=== PATIENT | male | born 1945 | race Caucasian/White ===

== ENCOUNTER 2019-01-25 08:00 | Day surgery (SDC) | payer MEDICARE, BC ==
[~2019-01-25 08:00] MED LIST: ACETAMINOPHEN 500 MG TABLET PO ONE; CEFAZOLIN 2 Gram 2 GM/50 ML BAG IVPB ONE; CELECOXIB 100 MG CAPSULE PO ONE; FAMOTIDINE 20MG TABLET PO ONE; METOCLOPRAMIDE 10 MG TABLET PO ONE; SCOPOLAMINE 1 PATCH TDSY TD ONE; VANCOMYCIN 1GM/200ML PREMIX 1 GM/200 ML PIGGYBACK IVPB ONE
[2019-01-25] MEDS ORDERED: ROPIVACAINE HCL (NAROPIN) /PF 5MG/ML 20ML VIAL IV ONE (08:01)
[2019-01-25] MEDS ORDERED: LIDOCAINE 2% MDV (20MG/ML) 20ML VIAL IV ONE (08:01)
[2019-01-25] MEDS ORDERED: DEXAMETHASONE 4 MG/ML 1ML VIAL IVP ONE (08:01)
[2019-01-25] MEDS ORDERED: MIDAZOLAM HCL 2MG/2ML VIAL IV ONE (08:01)
[2019-01-25] MEDS ORDERED: PROPOFOL 10 MG/ML VIAL IV ONE (08:01)
[2019-01-25 09:00] LABS: ABO GROUP B; ANTIBODY SCREEN NEGATIVE (NEGATIVE); RH TYPE POSITIVE
[2019-01-25] MEDS ORDERED: RINGERS SOLUTION,LACTATED 1,000 ML IV ONE ×2 (09:10→10:57)
[2019-01-25] MEDS ORDERED: VANCOMYCIN HCL 1 GM VIAL IU ONE (11:22)
[2019-01-25] MEDS ORDERED: TRANEXAMIC ACID 1,000 MG/10 ML ML IU ONE (11:22)
[2019-01-25] MEDS ORDERED: BUPIVACAINE LIPOSOME 266MG/20ML VIAL SQ ONE (11:22)
[2019-01-25] MEDS ORDERED: VANCOMYCIN HCL 1 GM VIAL IR ONE (11:22)
[2019-01-25] MEDS ORDERED: BUPIVACAINE 0.5% W/EPI MPF 30 ML VIAL IU ONE (11:22)
[2019-01-25] MEDS ORDERED: TRANEXAMIC ACID 1,000 MG/10 ML ML IVPB ONE (11:23)
[2019-01-25] MEDS ORDERED: ZOLPIDEM TARTRATE 5 MG TABLET PO PRN (13:11)
[2019-01-25] MEDS ORDERED: HYDROCODONE/APAP 5/325MG TABLET PO PRN (13:11)
[2019-01-25] MEDS ORDERED: BISACODYL 10 MG SUPP RC PRN (13:11)
[2019-01-25] MEDS ORDERED: ACETAMINOPHEN W/ CODEINE 300MG/30MG TABLET PO PRN ×2 (13:11)
[2019-01-25] MEDS ORDERED: HYDROMORPHONE HCL 2 MG/ML VIAL IM PRN ×2 (13:11)
[2019-01-25] MEDS ORDERED: ONDANSETRON HCL IV 4 MG/2 ML VIAL IVP PRN (13:11)
[2019-01-25] MEDS ORDERED: METOCLOPRAMIDE HCL 10 MG/2 ML VIAL IVP PRN (13:11)
[2019-01-25] MEDS ORDERED: PROMETHAZINE HCL 12.5 MG in 0.9 % SODIUM CHLORIDE 100ML 50 ML IVPB PRN (13:11)
[2019-01-25] MEDS ORDERED: DIPHENHYDRAMINE HCL 25 MG CAPSULE PO PRN (13:11)
[2019-01-25] MEDS ORDERED: NALOXONE 0.4 MG/1 ML VIAL IVP PRN (13:11)
[2019-01-25] MEDS ORDERED: TRAMADOL HCL 50 MG TABLET PO PRN ×2 (13:11)
[2019-01-25] MEDS ORDERED: ACETAMINOPHEN W/ CODEINE 300MG/60MG TABLET PO PRN (13:11)
[2019-01-25] MEDS ORDERED: AL HYDROX/MAG HYDROX 30ML UD PO PRN (13:11)
[2019-01-25] MEDS ORDERED: HYDROCODONE/APAP 7.5/325MG TABLET PO PRN (13:11)
[2019-01-25] MEDS ORDERED: ACETAMINOPHEN 325 MG TAB PO PRN (13:11)
[2019-01-25] MEDS ORDERED: MAGNESIUM HYDROXIDE 30 ML UDC PO PRN (13:11)
[2019-01-25] MEDS ORDERED: KETOROLAC 30 MG/ML VIAL IVP PRN (13:11)
[2019-01-25] MEDS ORDERED: DEXTROSE 5 % AND 0.9 % NACL 1,000 ML IV PRN (14:00)
[2019-01-25] MEDS ORDERED: NITROGLYCERIN 0.4MG SL TABLET #25 BTL SL PRN (14:06)
[2019-01-25] MEDS ORDERED: PANTOPRAZOLE SODIUM 40 MG TABLET PO PRN (14:08)
--- NOTE | 2019-01-25 15:07 | Operative Note ---
DATE OF SURGERY: 01/25/2019 PREOPERATIVE DIAGNOSIS: END STAGE RIGHT KNEE ARTHROSIS. POSTOPERATIVE DIAGNOSIS: END STAGE RIGHT KNEE ARTHROSIS. OPERATION: RIGHT TOTAL KNEE ARTHROPLASTY. SURGEON: Shubham Stuart M.D. ANESTHESIA: Spinal. ANESTHESIA PROVIDED: MADISON Orta CRNA COMPLICATIONS: None. ESTIMATED BLOOD LOSS: Minimal. TOURNIQUET TIME: Approximately 6 minutes. OPERATIVE FINDINGS: Glky-jn-aebc valgus compartment, lateral compartment arthrosis. COMPONENTS PLACED: 2 gram of Vancomycin cemented Harrison and and Nephew Journey II Oxinium total knee arthroplasty system size 7 femoral component, size 8 tibial baseplate, a 9 mm thick tibial poly insert and a 35 mm cemented patellar component. INDICATIONS: This s a 73-year-old male who is well known to myself. He is status post nonoperative treatment for the knee for several years including injections, anti-inflammatories, therapy and knee arthroscopies failed and he is scheduled for a knee replacement. He has progressed [id number] valgus arthrosis. I explained all risks and benefits in detail for the diagnosis and procedures including, but not limited to infection, nerve injury, vessel injury, , persistent pain, stiffness, numbness and tingling in the knee, periprosthetic fracture, need for resection arthroplasty components become infected or loosen, nerve injury, vessel injury, blood clot, need for further procedures, all of his questions were answered, rehab course was outlined, and he agreed to proceed. PROCEDURE: The patient was brought to the Operating Room, placed in the supine position in the Department of Surgery, and spinal anesthesia was induced. The right lower extremity and knee were prepped and draped in sterile fashion. The right knee was prepped again with ChloraPrep after it was draped. Intraoperative timeout was performed. Next, the leg was exsanguinated with Esmarch, the knee was flexed, and there was no tourniquet used. We then infiltrated the incision anterior with 0.5% Marcaine with epi, tranexamic acid, and Exparel mixture. We used Aquamantys in each layer for electrocautery during the entire case. Next the skin and subcutaneous tissue was dissected down, incised the capsule medially around the medial border of the patella to the tibial tubercle. Incised the valgus medialis in line with its fibers, in a mid vastus approach, partially resected the retropatellar fat pad, elevated the capsule subperiosteally and medially and flexed the knee. He had severe [id number]-[id number] valgus medial and lateral compartment arthrosis. Next, we drilled the intracondylar drill hole, inserted, the intramedullary guide aleyda with 6-degree cutting block, centered off the distal femoral condyles, and +2 mm position. We cut the distal femoral condyles covering the lateral condyle nicely as well. Next, we cut the distal femoral condyle. Next we placed the sizing jig in the distal femoral condyles and sized to be right on size 7 through the previously placed pin holes, we placed a size 7 cutting jig, we dilated the anterior cut so it could out flush without notching. We cut that cut, it was a good cut, we then pinned it and cut the remainder of chamfer cuts in the usual fashion. Next, pled a size 7 femoral component, centered it pinned it, removed osteophytes, inserted the resection collet, reamed out and box Osteomed the cruciate bone block. Next, attention was turned to the tibia. We seated the spikes of the external alignment jig in the tubercular groove of the tibia along the center of the tibial anatomic axis 2 fingerbreadths distally, referenced for a 7 mm cut off the higher medial plateau. We then pinned the cutting jig provisionally and placed 2 anterior posterior pins. We then rechecked alignment using a drop aleyda and centered the tibial anatomic axis and cross pinned the cutting jig to allow complete fixation and cut the tibia. Next, we removed the osteophytes off the posterior femoral condyles, and checked the flexion/extension gaps and basically was good 1-2 mm varus valgus laxity, flexion, extension, and symmetric gaps with a 9 mm poly insert. Next, we took the knee in flexion and sized the tibial baseplate to a size 8. Next we then rough out all trial compartments and set the rotation tibial baseplate again in extension allowing it to sit on hip joint and ankle joint. Marked pen serrano on the anterior cortex off the laser marked of the tibial baseplate. Attention was turned to the patella, it was measured 12, we set the cutting jib to allow for 9 mm thick insert, cut the patella, chamfered off the lateral patellar facet, and measured it to b3 305 mm, drilled 3 peg holes and did a trial range of motion. Then mixed cement. The patella tracked nicely and was free in full extension to 0 flexion and 130-140 degrees. Again symmetric flexion/extension gaps. Next we put the knee in flexion, placed the bone plug in the femoral canal hole, sed the tibial baseplate off the previous placed electrocautery serrano, pinned it in place, reamed out, and keel punched the keel hole. Next changed gloves, copiously irrigated bone surfaces with pulse lavage and angiotic solution. We brought in a clean sheet and pre-cut bolsters are coming down. We cut the tibial component. We placed both components and packed down the tibial component first removing excess cement and then the femoral component removing excess cement. Placed a trial tibial poly liner, held the knee in extension, clamped down the patella until the cement hardened removing excess cement. Took the knee in flexion, distracted the knee with the bone hook and sponge and injected our mixture into the posterior capsule after irrigating it and cauterizing again with Aquamantys with several sticks of Marcaine, tranexamic acid and Exparel mixture. Next inserted the real tibial poly insert to verify that it was interlocking and lateral. Final range of motion appeared the same. Irrigated copiously and closed the capsule in flexion running #2 quill suture, irrigated again, cauterized again in Aquamantys, and closed the skin with 2-0 Vicryl securely and a provisional dressing was applied and will change to a POLA dressing prior to discharge. The patient tolerated the procedure well with no complications. Sponge, needle, and blade counts are correct. He is prepared for discharge to the floor and then he will be discharged home tomorrow. JOB NUMBER: [id number] MTDD
[2019-01-25] MEDS: HYDROCODONE/APAP 5/325MG TABLET PO PRN ×2 (15:14→21:18)
--- NOTE | 2019-01-25 16:38 | Rehab Evaluation ---
Patient Information - Patient Information Diagnosis: R knee DJD Ordered Treatment: PT Evaluate and Treat Status: Initial Evaluation Surgery: Yes (R knee TKA) Date of Surgery: 01/25/19 Past Medical/Surgical Hx: PAST MEDICAL/SURGICAL HISTORY Past Surgical History BILAT CTR CARDIAC STENTS X'S 3 2000 TRIPLE BYPASS 2016 LYMPHNODE REMOVALS C SCOPES BILAT CATARACT EXTRACTION BACK SX LUMBAR CAGE PMH - Respiratory Hx Respiratory Disorders Yes Hx Bronchitis Yes: A LONG TIME AGO PMH - Cardiovascular Hx Cardiovascular Disorders Yes Hx Abnormal EKG Yes Hx Cardiac Catheterization Yes: RECENT SEE REPORT IN CHART Hx Deep Vein Thrombosis Yes: 2006 Hx Heart Attack No Hx Hypertension Yes: CONTROLLED WITH MEDS Hx Coronary Artery Disease Yes Hx Coronary Artery Bypass Yes: TRIPLE 2016 Graft Hx Coronary Stent Yes: X'S 3 2000 Exercise Tolerance Fair Comment: COMPLAINS OF FATIGUE PMH - Neuro Hx Neurological Disorders Yes Hx Dizziness Yes: BALANCE ISSUES FALLS ALOT. DIZZY WHEN HE STANDS UP SOMETIMES Hx Headaches Yes: CONSTANT FROM CERVICAL ISSUES Hx Neuropathy Yes: BILAT LEGS Comment: TREMORS BILAT HANDS UNKNOWN ETIOLOGY NOTICED PILL ROLLING DURING INTERVIEW PMH - GI Hx Gastrointestinal Disorders Yes Hx Abdominal Pain Yes: AT TIMES Hx Gastroesophageal Reflux Yes: USES OMEPRAZOLE PRN Hx Nausea/Vomiting Yes: NAUSEA AT TIMES HAS HAD ON AND OFF FOR MANY YEARS Hx Ulcer Yes: HX Comment: CHRONIC DIARRHEA PMH - Hx Genitourinary Disorders Yes Hx Bladder Problem Yes: FREQUENCY AND NOCTURIA Hx Prostate Problems Yes: BPH Hx Urinary Tract Infection Yes: HX OF PMH - Endocrine Hx Endocrine Disorders Yes Hx Thyroid Disease Yes: ON MEDS HYPO PMH - Musculoskeletal Hx Musculoskeletal Disorders Yes Hx Arthritis Yes: KNEES AND FINGERS Hx Back Injury Yes: CERVICAL FROM A FALL PMH - Psych Hx Psychiatric Problems Yes Hx Anxiety Yes Hx Depression Yes PMH - Hematology/Oncology Hx Hematology/Oncology Yes Disorders Hx Bruising Yes: ON PLAVIX Hx Cancer Yes: LYMPHOMA STAGE REOCCURANCE SPRING 2018 NO TX AT THIS TIME "SLOW GROWING" Hx Chemotherapy Yes: WITH ORIGINAL DX Hx Radiation Therapy No Premorbid Status: Detail (The patient was independent with all mobility.) Social History: Detail (The patient lives in a one story house with spouse with no steps at the enterance. The bathroom is equipped with: a tub/shower combination, shower bench and an elevated toilet. Grab bars are present in the shower but not by the toilet. The patient has a front wheeled walker and several canes.) Precautions: [place], Fall, Other (WBAT on the R LE.) - Time With Patient Total Time Spent With Patient (Min): 30 Treatment Procedures: Detail (Initial Evaluation low complexity, gait training) Subjective Information - Subjective Information Per Patient (The patient had complaints of pain in R quad region but did not rate pain using 0-10 pain scale.) Objective Data - Mental Status Patient Orientation: Oriented x3 - Visual Perception Appears within normal limits for therapeutic activities - ROM Not within normal limits (The patient's R knee AROM is limited as to be expected following surgery. All other AROM is WNL.) - Strength/Tone Not within normal limits (The patient's LE strength was not tested s/p surgery.) - Bed Mobility Independent (The patient was independent with supine to sit with bed mobility.) - Transfers Independent (The patient is independent with sit to and stand.) - Balance Balance Sitting: Good Balance Standing: Good - Gait Detail ( The patient ambulated with front wheeled walker a distance of 100 feet x 1 WBAT on the R LE.) Therapy Assessment - Therapy Assessment Detail (The patient was independent with bed mobility and transfers and required supervision for safety with ambulation. Anticipate the patient met inpatient PT goals in 1-2 sessions.) Problem List - Problem List Physical Therapy Problem List: Detail (Decreased R knee AROM and strength as to be expected following surgery.) Goals - Goals Physical Therapy Goals: 1) The patient will be independent with TKA HEP. 2) The patient will demonstrate good understanding of proper technique for stair climbing. 3) The patient will ambulate community distances independently with appropriate assistive device. Prognosis - Prognosis Good Plan - Plan Physical Therapy Plan: PT 1-2 sessions of gait training on levels and instruction in HEP.
[2019-01-25] MEDS ORDERED: PNEUM 13-VAL/PF 0.5 ML IM ONE (19:00)
[2019-01-25] MEDS: DULOXETINE HCL 30 MG CAPSULE.DR PO SCH (21:13)
[2019-01-25] MEDS: DOCUSATE SODIUM 100 MG CAPSULE PO SCH (21:13)
[2019-01-25] MEDS: VANCOMYCIN 1GM/200ML PREMIX 1 GM/200 ML PIGGYBACK IVPB SCH (21:13)
[2019-01-25] MEDS: FERROUS SULFATE 325 MG TAB PO SCH (21:13)
[2019-01-25] MEDS ORDERED: ATORVASTATIN 20 MG TABLET PO SCH (22:00)
[2019-01-25] MEDS ORDERED: TAMSULOSIN HCL 0.4 MG CAP.ER.24H PO SCH (22:00)
[2019-01-26] MEDS: HYDROCODONE/APAP 5/325MG TABLET PO PRN (05:31)
[2019-01-26 06:52] LABS: HEMATOCRIT 33.6 % (42.0-52.0); HEMOGLOBIN 10.5 gm/dl (14.0-18.0)
[2019-01-26] MEDS ORDERED: LEVOTHYROXINE SODIUM 75 MCG TABLET PO SCH (07:00)
[2019-01-26] MEDS: VANCOMYCIN 1GM/200ML PREMIX 1 GM/200 ML PIGGYBACK IVPB SCH (08:31)
[2019-01-26] MEDS: FERROUS SULFATE 325 MG TAB PO SCH ×2 (08:32→09:24)
[2019-01-26] MEDS: CLOPIDOGREL 75MG TABLET PO SCH ×2 (08:32→09:25)
[2019-01-26] MEDS: CELECOXIB 100 MG CAPSULE PO SCH ×2 (08:32→09:24)
[2019-01-26] MEDS: ASPIRIN 81 MG TABEC PO SCH ×2 (08:32→09:24)
[2019-01-26] MEDS: DULOXETINE HCL 30 MG CAPSULE.DR PO SCH ×2 (08:32→09:24)
[2019-01-26] MEDS: DOCUSATE SODIUM 100 MG CAPSULE PO SCH ×2 (08:32→09:24)
[2019-01-26] MEDS ORDERED: METOPROLOL TART 25 MG TABLET PO SCH (10:00)
[2019-01-26] MEDS ORDERED: ATENOLOL 50 MG TABLET PO SCH (10:00)
[2019-01-26] MEDS ORDERED: RIVAROXABAN 10 MG TABLET PO SCH (10:00)
[2019-01-26] MEDS ORDERED: LISINOPRIL 5 MG TABLET PO SCH (10:00)
--- NOTE | 2019-01-26 10:05 | Physical Therapy Tx Note ---
Physical Therapy Tx Note - Treatment Note Tolerated: Good Total Time Spent With Patient: 25 Physical Therapy Tx Note: Detail (Patient reported that he had some pain in his R knee this morning. The patient ambulated 250 feet in the hallway independently with the front-wheeled walker. He completed stair training over 3 stairs with good technique. In bed, he demonstrated good understanding and technique of HEP exercises. The patient met all of his inpatient goals. He was left in bed with his call light and bedside table within reach. The nursing staff was notified of his status.) Physical Therapy Problem List: Detail (Decreased R knee AROM and strength as to be expected following surgery.) Physical Therapy Goals: 1) The patient will be independent with TKA HEP GOAL MET. 2) The patient will demonstrate good understanding of proper technique for stair climbing. GOAL MET. 3) The patient will ambulate community distances independently with appropriate assistive device. GOAL MET Physical Therapy Plan: All inpatient goals have been met. The patient will continue with home therapy following discharge.
--- NOTE | 2019-01-26 11:54 | Rehab Evaluation ---
Patient Information - Patient Information Diagnosis: R knee DJD Ordered Treatment: OT Evaluate and Treat Status: Initial Evaluation Surgery: Yes (R knee TKA) Date of Surgery: 01/25/19 Past Medical/Surgical Hx: PAST MEDICAL/SURGICAL HISTORY Past Surgical History BILAT CTR CARDIAC STENTS X'S 3 2000 TRIPLE BYPASS 2016 LYMPHNODE REMOVALS C SCOPES BILAT CATARACT EXTRACTION BACK SX LUMBAR CAGE PMH - Respiratory Hx Respiratory Disorders Yes Hx Bronchitis Yes: A LONG TIME AGO PMH - Cardiovascular Hx Cardiovascular Disorders Yes Hx Abnormal EKG Yes Hx Cardiac Catheterization Yes: RECENT SEE REPORT IN CHART Hx Deep Vein Thrombosis Yes: 2006 Hx Heart Attack No Hx Hypertension Yes: CONTROLLED WITH MEDS Hx Coronary Artery Disease Yes Hx Coronary Artery Bypass Yes: TRIPLE 2016 Graft Hx Coronary Stent Yes: X'S 3 2000 Exercise Tolerance Fair Comment: COMPLAINS OF FATIGUE PMH - Neuro Hx Neurological Disorders Yes Hx Dizziness Yes: BALANCE ISSUES FALLS ALOT. DIZZY WHEN HE STANDS UP SOMETIMES Hx Headaches Yes: CONSTANT FROM CERVICAL ISSUES Hx Neuropathy Yes: BILAT LEGS Comment: TREMORS BILAT HANDS UNKNOWN ETIOLOGY NOTICED PILL ROLLING DURING INTERVIEW PMH - GI Hx Gastrointestinal Disorders Yes Hx Abdominal Pain Yes: AT TIMES Hx Gastroesophageal Reflux Yes: USES OMEPRAZOLE PRN Hx Nausea/Vomiting Yes: NAUSEA AT TIMES HAS HAD ON AND OFF FOR MANY YEARS Hx Ulcer Yes: HX Comment: CHRONIC DIARRHEA PMH - Hx Genitourinary Disorders Yes Hx Bladder Problem Yes: FREQUENCY AND NOCTURIA Hx Prostate Problems Yes: BPH Hx Urinary Tract Infection Yes: HX OF PMH - Endocrine Hx Endocrine Disorders Yes Hx Thyroid Disease Yes: ON MEDS HYPO PMH - Musculoskeletal Hx Musculoskeletal Disorders Yes Hx Arthritis Yes: KNEES AND FINGERS Hx Back Injury Yes: CERVICAL FROM A FALL PMH - Psych Hx Psychiatric Problems Yes Hx Anxiety Yes Hx Depression Yes PMH - Hematology/Oncology Hx Hematology/Oncology Yes Disorders Hx Bruising Yes: ON PLAVIX Hx Cancer Yes: LYMPHOMA STAGE REOCCURANCE SPRING 2018 NO TX AT THIS TIME "SLOW GROWING" Hx Chemotherapy Yes: WITH ORIGINAL DX Hx Radiation Therapy No Premorbid Status: Detail (The patient was independent with all mobility. 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 The bathroom is equipped with: a tub/shower combination with a hand held shower and shower bench and an elevated toilet. Grab bars are present in the shower but not by the toilet. 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.) Precautions: [place], Fall, Other (WBAT on the R LE.) - Time With Patient Total Time Spent With Patient (Min): 50 Treatment Procedures: Detail (OT eval low complexity) Subjective Information - Subjective Information Per Patient Objective Data - Pain Pain Present: Yes (08/17) - Mental Status Patient Orientation: Oriented x3 - Visual Perception Appears within normal limits for therapeutic activities - ROM Within normal limits ([place] UE AROM WNL) - Strength/Tone Within normal limits ([place] UE strength WNL) - Coordination Appears within normal limits for therapeutic activities - Bed Mobility Independent (Ind with supine to sit and sit to supine.) - Transfers Independent (Ind with sit to stand from EOB) - Balance Balance Sitting: Good Balance Standing: Good - Sensation Intact - Gait Detail (Pt ambulating in room with 2 wheeled walker and supervision) - ADL's/IADL's Detail (Pt educated and able to demonstrate learning of modified LE dressing technique including doffing briefs and donning villa sock (with assist), underwear, pants and slip on shoes. Reviewed shower safety and modifications, pt verbalized understanding.) Therapy Assessment - Therapy Assessment Detail (Pt is Ind with modified LE dressing techniques.) Problem List - Problem List Physical Therapy Problem List: Detail (Decreased R knee AROM and strength as to be expected following surgery.) Occupational Therapy Problem List: Detail (No current IP OT problems identified. ) Goals - Goals Physical Therapy Goals: 1) The patient will be independent with TKA HEP GOAL MET. 2) The patient will demonstrate good understanding of proper technique for stair climbing. GOAL MET. 3) The patient will ambulate community distances independently with appropriate assistive device. GOAL MET Occupational Therapy Goals: No current IP OT goals identified. Prognosis - Prognosis Good Plan - Plan Physical Therapy Plan: All inpatient goals have been met. The patient will continue with home therapy following discharge. Occupational Therapy Plan: Pt is discharged from IP OT at this time. Thank you for this referral.
== END 2019-01-26 13:01 | disposition home health service (06) ==
LOC: SUR 08:00 → MEDSURG 13:44 → SUR 01-26 13:01
PROVIDERS: ATTEND Orthopaedic Surgery
DX: M17.11 Unilateral primary osteoarthritis, right knee (principal); I10 Essential (primary) hypertension; N40.0 Benign prostatic hyperplasia without lower urinary tract symptoms; E78.00 Pure hypercholesterolemia, unspecified; Z79.01 Long term (current) use of anticoagulants; K21.9 Gastro-esophageal reflux disease without esophagitis; I25.119 Atherosclerotic heart disease of native coronary artery with unspecified angina pectoris; Z95.5 Presence of coronary angioplasty implant and graft; Z95.1 Presence of aortocoronary bypass graft; E03.9 Hypothyroidism, unspecified; Z23 Encounter for immunization
CPT/HCPCS: 27447; 01402; 64447; 85018; 85014; 86900; 86901; 86850; 90670; 76942; C1776 ×3; G0009; J3490; J1885; J3370 ×3; J0690; C9290; J2795; J7042; J7120